=== PATIENT | female | born 1970 | race Caucasian/White ===

== ENCOUNTER 2016-10-07 21:09 | Inpatient (IN) | payer OTHER ==
[~2016-10-07] VITALS: Ht 165.1 cm; Wt 53.5 kg
--- NOTE | 2016-10-07 21:46 | NUR ---
RECEIVED 46 YO FEMALE HERE FOR DETOX FROM ALCOHOL. PT [facility] AND SAID THEY DONT DO DETOX. PT DRINKS ABOUT A HALF TO ONE PINT OF VODKA A DAY. LAST DRANK THIS AM BUT HAD A FEW SHOTS BEFORE COMING HERE. PT BEGINNING TO HAVE VISUAL DISTURBANCES. PT DENIES WITHDRAWL SEIZURES. PT REPORTS SHE NEVER HAS BEEN THROUGH DETOX BEFORE.
--- NOTE | 2016-10-07 21:48 | NUR ---
PT DENIES SUICIDAL THOUGHTS OR IDEADION. NO H.I.
--- NOTE | 2016-10-07 22:32 | ED PSYCHIATRIC COMPLAINT ---
History of Present Illness General Chief Complaint: ETOH/Drug Related Complaint Stated Complaint: REQUESTING DETOX FROM ETOH, -SI/HI Source: patient Exam Limitations: no limitations Vital Signs & Intake/Output Vital Signs & Intake/Output Vital Signs Date Time Temp Pulse Resp B/P B/P Pulse O2 O2 Flow FiO2 Mean Ox Delivery Rate 10/08 0340 97.2 92 18 126/91 06 0330 97.2 92 18 126/91 98 10/08 0130 97.7 104 18 144/90 10/08 0040 97.7 91 18 130/80 98 10/07 2147 98.8 106 18 147/90 97 Room Air ED Intake and Output 10/08 0000 10/07 1200 Intake Total Output Total Balance Patient 118 lb Weight Weight Estimated Measurement Method Allergies Coded Allergies: No Known Allergies (10/07/16) Triage Note: RECEIVED 46 YO FEMALE HERE FOR DETOX FROM ALCOHOL. [facility] SAID THEY DONT DO DETOX. PT DRINKS ABOUT A HALF TO ONE PINT OF VODKA A DAY. LAST DRANK THIS AM BUT HAD A FEW SHOTS BEFORE COMING HERE. PT BEGINNING TO HAVE VISUAL DISTURBANCES. PT DENIES WITHDRAWL SEIZURES. PT REPORTS SHE NEVER HAS BEEN THROUGH DETOX BEFORE. Triage Nurses Notes Reviewed? yes Onset: Abrupt Duration: week(s): (1) Timing: recent history Severity: moderate, severe Associated Symptoms: AGITATION, ANXIETY, VISUAL HALLUCINATIONS HPI: This is a very pleasant 46-year-old female with history of alcoholism. She states she's been drinking for the past 3 years. For the past one year she's been drinking 1 pint of vodka per day. When she wakes up in the morning she needs to drink as she gets up. She is unable to function throughout the day at work and then drinks the rest when she gets home. She states the last week or so her mood is been getting worse and she is feeling agitated. Throat work she cannot concentrate. She thinks that she needs to detox at this point. Her a few years ago for alcoholism and states that she is worried about leaving her children alone. This morning she went to the hospital he told her they didn't do detox. They gave her 0.5 mg of Ativan in the hospital and she took another dose at 7:45 PM. She states at home she was starting to see bugs on the wall as well as bugs on her daughter's face. No known history of alcohol withdrawal seizures. She states that she is never gone long enough to find out what happens. She has not missed a day of alcohol last year. She should drink excessive wheel from Memorial weekend which may have made things worse. She is not suicidal or hotel. She denies any illicit drug use. She denies report family history of alcoholism. (AMAN ELIZONDO MD) Past History Travel History Traveled to [place] past 21 day No Medical History Any Pertinent Medical History? see below for history Neurological: NONE EENT: NONE Cardiovascular: NONE Respiratory: NONE Gastrointestinal: NONE Hepatic: NONE Renal: NONE Musculoskeletal: NONE Psychiatric: NONE Endocrine: NONE Blood Disorders: NONE Cancer(s): NONE Surgical History Surgical History: non-contributory Psychosocial History What is your primary language Kazakh Tobacco Use: Quit >30 days ago ETOH Use: alcoholic Illicit Drug Use: denies illicit drug use Family History Comment: FAMILY H/O ALCOHOLISM Hx Contributory? Yes (AMAN ELIZONDO MD) Review of Systems Review of Systems Constitutional: Denies: chills, fever. EENTM: Reports: no symptoms. Respiratory: Denies: cough, short of breath. Cardiovascular: Denies: chest pain, palpitations. GI: Reports: no symptoms. Genitourinary: Reports: no symptoms. Musculoskeletal: Reports: no symptoms. Skin: Reports: no symptoms. Neurological/Psychological: Reports: anxiety, confusion. Denies: headache, numbness. Hematologic/Endocrine: Denies: bruising, bleeding, polyuria, polydipsia. Immunologic/Allergic: Denies: splenectomy. All Other Systems: Reviewed and Negative (AMAN ELIZONDO MD) Physical Exam Physical Exam General Appearance: alert, awake, anxious, mild distress, thin Head: atraumatic Eyes: Bilateral: PERRL, EOMI. Ears, Nose, Throat: normal pharynx, normal ENT inspection, hearing grossly normal Neck: normal inspection, supple Respiratory: normal breath sounds Cardiovascular: regular rate/rhythm Gastrointestinal: soft, non-tender Extremities: normal range of motion Neurological/Psychiatric: awake, alert, anxious, hospital chief executive officer II-XII nml as tested Appearance/Memory/Insight: appropriate appearance, appropriate insight, neat Behavoir/Eye Contact/Speech: cooperative, normal speech, good eye contact Thoughts/Hallucinations: visual hallucinations Skin: intact, normal color, warm/dry SAD PERSONS Done? patient not suicidal (CARO HAWKINS,AMAN) Progress Differential Diagnosis: ALCOHOL ABUSE, ALCOHOL WITHDRAWL Plan of Care: Orders Procedure Date/time Status Nothing by Mouth 10/08 B Active Pathway - chart 10/08 418 Active Saline Lock 10/08 416 Active Misc Message 10/08 416 Active ED Holding Orders 10/08 416 Active Admit to inpatient 10/08 416 Active Vital Signs 10/08 416 Active Code Status 10/08 416 Active EKG 10/08 2247 Active Add-on Test (ER Only) 10/07 2241 Active CIWA 10/07 2241 Active URINE DRUG SCREEN FOR ER ONLY 10/07 2157 Complete PARTIAL THROMBOPLASTIN TIME 10/07 2157 Complete PROTHROMBIN TIME 10/07 2157 Complete MAGNESIUM 10/07 2157 Complete LIPASE 10/07 2157 Complete ETHANOL 10/07 2157 Complete COMPREHENSIVE METABOLIC PANEL 10/07 2157 Complete CBC WITHOUT DIFFERENTIAL 10/07 2157 Complete Current Medications Sig/Zulay Start time Last Medication Dose Stop Time Status Admin Folic Acid 1 MG DAILY 10/08 1000 UNVr (Folic Acid) 10/10 1001 Multivitamins 1 TAB DAILY 10/08 1000 UNVr (Theragran Vitamins) Thiamine HCl 100 MG DAILY 10/08 1000 UNVr (Vitamin B1) 10/10 1001 Lorazepam 2 MG Q2P PRN 10/08 0430 UNVr (Ativan) Lorazepam 1 MG Q2P PRN 10/08 0430 UNVr (Ativan) Lorazepam 2 MG Q2P PRN 10/08 0430 UNVr (Ativan) Lorazepam 1 MG Q2P PRN 10/08 0430 UNVr (Ativan) Lorazepam 2 MG ONE ONE 10/08 414 UNVr (Ativan) 10/09 415 Laboratory Tests 10/08/16 0018: Anion Gap 14, Estimated GFR > 60, BUN/Creatinine Ratio 15.0, Glucose 84, Calcium 9.5, Magnesium 1.9, Total Bilirubin 1.9 H, AST 123 H, ALT 148 H, Alkaline Phosphatase 66, Total Protein 8.1, Albumin 4.8, Globulin 3.3, Albumin/Globulin Ratio 1.5, Lipase 134, PT 11.3, INR 1.08, APTT 25, CBC w Diff NO MAN DIFF REQ, RBC 4.47, MCV 95.9, MCH 33.1 H, RDW 11.9, MPV 7.1 L, Gran % 73.4, Lymphocytes % 18.6 L, Monocytes % 6.9, Eosinophils % 0.8, Basophils % 0.3, Absolute Granulocytes 6.2, Absolute Lymphocytes 1.6, Absolute Monocytes 0.6, Absolute Eosinophils 0.1, Absolute Basophils 0, PUBS MCHC 34.5, Serum Alcohol < 10.0 10/07/16 2300: Urine Opiates Screen < 100.00, Methadone Screen 56, Barbiturate Screen < 60, Ur Phencyclidine Scrn < 6.00, Amphetamines Screen < 100, U Benzodiazepines Scrn < 85, Urine Cocaine Screen < 50, Urine Cannabis Screen < 5.00 Initial ED EKG: NSR Hand-Off Endorsed To: WES HAWKINS,GREGORY Henry Endorsed Time: 2299 Pending: labs, other (CIWA/SOBRIETY) (AMAN ELIZONDO MD) Departure Departure Disposition: STILL A PATIENT Condition: Stable Clinical Impression Primary Impression: Alcohol withdrawal Referrals: UNKNOWN (PCP/Family) Departure Forms: Customer Survey General Discharge Information (AMAN ELIZONDO MD) Admission Note Spoke With: MILAN KAUR MD Documentation of Exam: Documentation of any treatments & extenuating circumstances including Concerns Regarding Discharge (functional status, medication knowledge or non-compliance, living conditions, etc.) that warrant an admission rather than observation: pt meets criteria for admission based on elevated ciwa scores (15). Of note, pt visually hallucinating, tachycardic, tremulous. Discussed with case management. Pt merits benzos iv/po detox protocol. (WES HAWKINS,GREGORY Henry)
[2016-10-08] VITALS (7 sets, daily range): BP systolic 120–144; BP diastolic 78–91
--- NOTE | 2016-10-08 00:05 | NUR ---
PT C/O NAUSEA. PT MEDICATED WITH ZOFRAN PER ORDER
--- NOTE | 2016-10-08 00:18 | NUR ---
BLOOD DRAWN AND SEN TO LAB. LAV,SST,BLUE
[2016-10-08 00:30] LABS: ABSOLUTE BASOPHIL COUNT 0 /CUMM (0.0-0.2); ABSOLUTE EOSINOPHIL COUNT 0.1 /CUMM (0.0-0.7); ABSOLUTE GRANULOCYTE CT 6.2 /CUMM (1.4-6.5); ABSOLUTE LYMPH COUNT 1.6 /CUMM (1.2-3.4); ABSOLUTE MONOCYTE COUNT 0.6 /CUMM (0.10-0.60); BASOPHIL % 0.3 % (0.0-2.0); EOSINOPHIL % 0.8 % (0-5); GRANULOCYTE % 73.4 % (42.2-75.2); HEMATOCRIT 42.9 % (37-47); MEAN CORPUSCULAR HGB 33.1 PG (27.0-31.0); MEAN CORPUSCULAR HGB CONC 34.5 G/DL (33.0-37.0); MEAN CORPUSCULAR VOLUME 95.9 FL (81.0-99.0); MEAN PLATELET VOLUME 7.1 FL (7.4-10.4); PLATELET COUNT 292 /CUMM (130-400); RBC DISTRIBUTION WIDTH 11.9 % (11.5-14.5); RED BLOOD CELL CT 4.47 /CUMM (4.20-5.40); WHITE BLOOD CELL COUNT 8.4 /CUMM (4.8-10.8)
[2016-10-08 00:35] LABS: PT 11.3 SEC (9.4-12.5); PTT 25 SEC (25-37)
--- NOTE | 2016-10-08 00:48 | NUR ---
PT REPORTS NAUSEA SUBSIDING AFTER BEING MEDICATED. PT DENIES PAIN AT THIS TIME
--- NOTE | 2016-10-08 01:58 | NUR ---
PT SCORING 10 IN CIWA. MD HARVEY AWARE
--- NOTE | 2016-10-08 04:14 | NUR ---
IV EST #20 IN RIGHT FOREARM
--- NOTE | 2016-10-08 04:24 | History & Physical ---
CLAUDIA HE 10/08/16 0422: General Information and HPI MD Statement: I have seen and personally examined RONNI TOWNSEND and documented this H&P. The patient is a 46 year old F who presented with a patient stated chief complaint of [ALCOHOL DETOX]. Source of Information: patient Exam Limitations: no limitations History of Present Illness: 46-year-old female with a past medical history of alcoholism presented to the ED for alcohol detox. According to the patient she's been drinking for the past 3 years. She's had a lot of stress in the family lately with her and parents passing away which triggered her to start drinking. She states that she drinks about a pint of vodka on a daily basis. Over the last week or so she feels like she's been out of control her drinking and so she wanted to come to the hospital for detox. Of note she went to [facility] earlier today and was told that they do not do detox. Later this evening she was sitting with her daughter saw acid spider on her nose and then started having visual hallucinations with people that there were spiders on the wall difficult. She therefore decided to come to the ER for further evaluation. Patient endorses chills, tremors, anxiety, palpitations denies any chest discomfort, headache, shortness of breath, fever, urinary complaints, abdominal pain, history of seizure disorder, has not undergone a detox before. She does endorse nausea stating that she 3 while right after having clear yesterday however denies any hematemesis. She states she did do binge drinking this past weekend. Of note she normally takes about 2 shots in the a.m. before going forward has another one at around lunch. She states that she was started on benzos by [facility] back in May for a month. Of note one of her step daughters is getting this weekend and she wants to be clean prior to attending the wedding. Allergies/Medications Allergies: Coded Allergies: No Known Allergies (10/07/16) Home Med list Alprazolam 0.5 MG TABLET 0.5 MG PO DAILY ANXIETY (Reported) Past History Travel History Traveled to [place] past 21 day No Medical History Neurological: NONE EENT: NONE Cardiovascular: NONE Respiratory: NONE Gastrointestinal: NONE Hepatic: NONE Renal: NONE Musculoskeletal: NONE Psychiatric: NONE Endocrine: NONE Blood Disorders: NONE Cancer(s): NONE Surgical History Surgical History: bunionectomies Past Family/Social History Family History Relations & Conditions if any MOTHER FH: pancreatic cancer FATHER FH: dementia FH: hyperlipidemia Psychosocial History Where do you live? Home Smoking Status: Former Smoker ETOH Use: alcoholic Illicit Drug Use: denies illicit drug use Functional Ability ADLs Independent: dressing, eating, toileting, bathing. Ambulation: independent IADLs Independent: shopping, housework, finances, food prep, telephone, transportation , medication admin. 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 EENTM: Denies: visual changes. Cardiovascular: Denies: chest pain, orthopena, palpitations, peripheral edema. Respiratory: Denies: cough, orthopnea, short of breath, sputum production, wheezing. GI: Reports: nausea, vomiting. Denies: abdominal pain, constipation, diarrhea, bloody stool, changes in stool. Genitourinary: Reports: no symptoms. Musculoskeletal: Reports: no symptoms. Neurological/Psychological: Reports: anxiety, tremors. Denies: headache, numbness, tonic-clonic seizures, unable to move lower ext, unable to move upper ext, weakness. Exam & Diagnostic Data Last 24 Hrs of Vital Signs/I&O Vital Signs Date Time Temp Pulse Resp B/P B/P Pulse O2 O2 Flow FiO2 Mean Ox Delivery Rate 10/08 0340 97.2 92 18 126/91 10/08 0330 97.2 92 18 126/91 98 10/08 0130 97.7 104 18 144/90 10/08 0040 97.7 91 18 130/80 98 10/07 2147 98.8 106 18 147/90 97 Room Air Intake & Output 10/08 0800 10/08 0000 10/07 1600 Intake Total Output Total Balance Patient 118 lb Weight Weight Estimated Measurement Method Physical Exam General Appearance Alert, Oriented X3, Cooperative, anxious Skin No Rashes, No Breakdown, No Significant Lesion Skin Temp/Moisture Exam: Warm/Dry Sepsis Skin Exam (color): Normal for Ethnicity HEENT Atraumatic, PERRLA, EOMI, dry mucous membranes; flushed Neck Supple, No JVD, No thryomegaly, +2 Carotid Pulse wo Bruit, No LAD Cardiovascular Regular Rate, Normal S1, Normal S2, No Murmurs Lungs Clear to Auscultation, Normal Air Movement Abdomen Normal Bowel Sounds, Soft, No Tenderness, No Hepatospenomegaly, No Masses Neurological Normal Speech, Strength at 5/5 X4 Ext, Normal Tone, Sensation Intact, Cranial Nerves 3-12 NL, Reflexes 2+, tremulous Extremities No Clubbing, No Cyanosis, No Edema, Normal Pulses, No Tenderness/ Swelling Vascular Normal Pulses, Pulses Symmetrical Last 24 Hrs of Labs/David: Laboratory Tests 10/08/16 0018: Anion Gap 14, Estimated GFR > 60, BUN/Creatinine Ratio 15.0, Glucose 84, Calcium 9.5, Magnesium 1.9, Total Bilirubin 1.9 H, AST 123 H, ALT 148 H, Alkaline Phosphatase 66, Total Protein 8.1, Albumin 4.8, Globulin 3.3, Albumin/Globulin Ratio 1.5, Lipase 134, PT 11.3, INR 1.08, APTT 25, CBC w Diff NO MAN DIFF REQ, RBC 4.47, MCV 95.9, MCH 33.1 H, RDW 11.9, MPV 7.1 L, Gran % 73.4, Lymphocytes % 18.6 L, Monocytes % 6.9, Eosinophils % 0.8, Basophils % 0.3, Absolute Granulocytes 6.2, Absolute Lymphocytes 1.6, Absolute Monocytes 0.6, Absolute Eosinophils 0.1, Absolute Basophils 0, PUBS MCHC 34.5, Serum Alcohol < 10.0 10/07/16 2300: Urine Opiates Screen < 100.00, Methadone Screen 56, Barbiturate Screen < 60, Ur Phencyclidine Scrn < 6.00, Amphetamines Screen < 100, U Benzodiazepines Scrn < 85, Urine Cocaine Screen < 50, Urine Cannabis Screen < 5.00 Diagnostic Data EKG Results ST; HR: 96, poor R wave progression, P wave inversion in V1 -V2; QTC: 469 Assessment/Plan Assessment: 46-year-old female with a past medical history of alcoholism, presents to the ED for detoxification from alcohol. Vitals at the time of admission blood pressure 126/91, respiratory rate 18, pulse 92, afebrile saturating 98% on room air. Labs pertinent normal white blood cell count of 8400, and H&H of 14.8/42.9, MCV of 95.9 with a platelet count of 292,000. Serum chemistries pertinent for hyponatremia with a sodium of 130s 4, potassium of 4.5, normal bicarbonate of 24 , anion gap of 14, BUN 9 with a creatinine of 0.6. LFTs revealed transaminitis with AST/ALT 123/148, alkaline phosphatase of 66, total bili elevated to 1.9. Amylase was negative at 134 and serum magnesium was within normal limits at 1.9. Coags revealed an INR of 1.08. U tox negative for cannabis, opiates, methadone. Serum alcohol was less than 10. EKG revealed: ST; HR: 96, poor R wave progression, P wave inversion in V1 -V2; QTC: 469 Her CIWA scores were ranging in the 15 in the ER. She received 4 mg of Zofran 1 and lorazepam 2 mg IV 1. Assessment and plan Admit patient to [facility] for alcohol detox #Alcohol detox Start Ativan 2 mg every 6 by mouth scheduled Start Ativan per CIWA protocol Banana bag 1 for now with transition to oral thiamine, folic acid, multivitamin in a.m. Place on seizure precautions Social work and psych consult in a.m. #Transaminitis Most likely secondary to alcoholism Follow-up repeat LFTs in a.m. -Diet Regular DVT prophylaxis Heparin 5000 IU TID subcutaneous CODE STATUS Full Code As Ranked By This Provider Problem List: 1. Alcohol withdrawal Core Measures/Miscellaneous Acute Coronary Syndrome ACS Diagnosis: No Cerebrovascular Accident CVA/TIA Diagnosis: No Congestive Heart Failure CHF Diagnosis: No Venous Thromboembolism VTE Risk Factors: Age > 40 No [facility] VTE prophylaxis d/t: No contraindications No VTE Pharm Prophylaxis d/t: No contraindications VTE Diagnosis: No VTE Type: NONE VTE Confirmed by (Test): NONE Severe Sepsis Severe Sepsis Present: No Septic Shock Septic Shock Present: No Miscellaneous Documentation Attending Case Discussed With: Dr. Huitron Primary Care Physician: UNKNOWN Patient sees these Specialists None Level of Patient Care: General Medicine Consults Needed: Consulting Specialty: Sexual Assault Counsellor Review Statement Resident Statement: ADMITTED BY MILAN TRIPATHI 10/08/16 0548: Attending MD Review Statement Attending Statement Attending MD Statement: examined this patient, discuss w/resident/PA/HOME HEALTH CARE CASE MANAGER, agreed w/resident/PA/HOME HEALTH CARE CASE MANAGER, reviewed EMR data (avail), reviewed images, amended to note Attending Assessment/Plan: CC: alcohol Detox PMH: none Patient came for alcohol detox. She has been drinking for the past 3 years, and drinking 1 pint of vodka per day for last year. She drinks 2 drinks in AM and the one drink lunch time then after coming home. Her mood is been getting worse and she is feeling agitated. Her a few years ago for alcoholism and she is worried about her children. This morning she went to other hospital, was told that they didn't do detox. They gave her 0.5 mg of Ativan in the hospital. She started to see bugs on the wall as well as bugs on her daughter's face so she came in ER . No known history of alcohol related seizures. She is not suicidal or homicidal. She denies any illicit drug use. She had one episode of vomiting, feels her abdomen is bloated otherwise no complaints. Vitals: Afebrile, pulse 106, RR 18, blood pressure 147/90, saturating well on room air. On exam: A O 3, cooperative, anxious, tremulous, neck supple, JVD normal, no lymphadenopathy, mucosa dry, no focal neurological deficit, no dependent edema, no obvious skin rashes or inflammation CVS: S1-S2, RRR. RS: Clear to auscultate bilaterally. Abdomen: Soft, NT, ND, bowel sounds present. Labs: CBC, BMP unremarkable. AST 123, ALT 148, total bilirubin 1.9, alkaline phosphatase 66, INR 1.08 U tox unremarkable, alcohol less than 10 A and P 46-year-old female extensive alcohol history comes for alcohol detox, currently anxious and mild tremors. Never tried detox before no history of seizures no history of homicidal or suicidal ideation. Patient's CIWA at presentation was 9 and went up to 15. Patient received total 2 mg of Ativan in ER. + Alcohol withdrawal - admit to general medicine floor - Scheduled Ativan 2 mg by mouth 6 hourly and when necessary Ativan according to CIWA score - Replace electrolytes - Replete vitamins, banana bag - Psychiatric consult in a.m. - Repeat CBC, BMP, LFT, phosphate in morning. - Adequate pain control - DVT prophylaxis with heparin or Lovenox
--- NOTE | 2016-10-08 04:39 | NUR ---
PT SCORING 15 CIWA. PT MEDICATED WITH 2MG ATIVAN PER ORDER
--- NOTE | 2016-10-08 05:21 | NUR ---
PT'S ASSIGNMENT 176
[2016-10-08] MEDS ORDERED: ALPRAZOLAM0.5 M4 PO (05:32)
--- NOTE | 2016-10-08 05:34 | NUR ---
PT A/O X4. RESP UNLABORED. SKIN WARM AND DRY. PT REPORTS FEELING BETTER AFTER ATIVAN.
--- NOTE | 2016-10-08 05:49 | Admission Certification ---
Admission Certification Certification Statement - As attending physician, I certify that at the time of - admission, based on clinical presentation, severity of - symptoms, need for further diagnostic testing and - therapeutic interventions, and risk of adverse outcomes - without in-hospital treatment, in my clinical assessment, - this patient requires an acute hospital stay for a minimum - of two nights or longer. I have also considered psychsocial - factors such as support system, advanced age, financial - issues, cognitive issues, and failed out-patient treatments, - past re-admission history, safety of patient, and lack of - compliance as applicable. Specific rationale supporting this admission is: Alcohol withdrawal
[2016-10-09 00:30] VITALS: BP 118/84
[2016-10-09 08:16] VITALS: BP 108/70
--- NOTE | 2016-10-09 10:20 | PN- Housestaff ---
ZABRINA MCMULLEN 10/09/16 1014: Subjective Follow-up For: Alcohol detox Subjective: Patient seen and examined. Very drowsy this morning. Arousable, unable to engage in conversation. States that medication is making her drowsy. Reports no anxiety or jitteriness. No chest pain, palpitations or hallucinations. No suicidal or homicidal ideations. Review of Systems Constitutional: Reports: see HPI. Objective Last 24 Hrs of Vital Signs/I&O Vital Signs Date Time Temp Pulse Resp B/P B/P Pulse O2 O2 Flow FiO2 Mean Ox Delivery Rate 10/09 0854 74 18 10/09 0816 98.5 78 16 108/70 97 Room Air 10/09 0030 97.7 70 20 118/84 97 Room Air 10/09 0000 Room Air 10/08 1530 98.8 88 16 120/78 98 Room Air 10/08 1214 98.2 87 20 130/90 Intake & Output 10/09 1600 10/09 0800 10/09 0000 Intake Total 200 420 Output Total Balance 200 420 Intake, IV 20 Intake, Oral 200 400 Number 0 Bowel Movements Physical Exam General Appearance: Alert, Oriented X3, Cooperative Cardiovascular: Regular Rate, Normal S1, Normal S2 Lungs: Clear to Auscultation, Normal Air Movement Abdomen: Normal Bowel Sounds, Soft Extremities: No Clubbing, No Cyanosis, No Edema Current Medications: Current Medications Sig/Zulay Start time Last Medication Dose Route Stop Time Status Admin Cyanocobalamin/ 1 BAG ONCE ONE 10/08 0445 DC 10/08 Thiamine/Pyridoxine IV 10/08 1244 0511 Dextrose/Water 1,000 ML Folic Acid 1 MG DAILY 10/09 1000 AC 10/09 PO 10/11 1001 0950 Folic Acid 1 MG DAILY 10/08 1000 DC PO 10/10 1001 Heparin Sodium 5,000 UNIT Q8 10/08 0600 AC 10/09 (Porcine) SC 0549 Ibuprofen 600 MG Q6P PRN 10/08 0445 AC PO Lorazepam 2 MG Q8 10/09 1400 DC PO Lorazepam 1.5 MG Q8 10/09 1400 AC PO Lorazepam 2 MG Q6 10/08 1200 DC 10/09 PO 0549 Lorazepam 2 MG Q2P PRN 10/08 0430 AC IV Lorazepam 1 MG Q2P PRN 10/08 0430 AC 10/08 IV 2013 Morphine Sulfate 2 MG Q8P PRN 10/08 0530 AC IV Multivitamins 1 TAB DAILY 10/09 1000 AC 10/09 PO 0949 Multivitamins 1 TAB DAILY 10/08 1000 DC PO Thiamine HCl 100 MG DAILY 10/09 1000 AC / PO 10/11 1001 0949 Thiamine HCl 100 MG DAILY 10/08 1000 DC PO 10/10 1001 Last 24 Hrs of Lab/David Results Last 24 Hrs of Labs/Mics: Laboratory Tests 10/09/16 0630: Anion Gap 9, Estimated GFR > 60, BUN/Creatinine Ratio 21.4, Phosphorus 3.3, Magnesium 2.0, Total Bilirubin 2.0 H, Direct Bilirubin 0.4, AST 148 H, ALT 147 H, Alkaline Phosphatase 58, Total Protein 7.2, Albumin 4.1 Assessment/Plan Assessment: 46-year-old woman with multiple stressors at home, presented to [facility] ED on 10/08/2016 requesting alcohol detox. 1. Alcohol detox: Decrease Ativan to 1.5 mg every 8. Continue when necessary Ativan per CIWA, CIWA scores less than 9 overnight, requiring only 2 mg of IV Ativan when necessary over last several hours. Continue MVI, thiamine and folic acid. Await psychiatry consultation and social consult. Possible discharge tomorrow. Outpatient IOP referral. Full code. Pharmacological DVT prophylaxis. Regular diet. Problem List: 1. Alcohol withdrawal Pain Ratin Pain Location: None Pain Goal: Remain pain free Pain Plan: PRN Tomorrow's Labs & Rationales: Not needed Consulting Request: Consulting Specialty: Psychiatry ROOSEVELT BOWSER MD 10/09/16 1840: Attending MD Review Statement Attending Statement Attending MD Statement: examined this patient, discuss w/resident/PA/ASBESTOS SURVEYOR, agreed w/resident/PA/ASBESTOS SURVEYOR, reviewed EMR data (avail) Attending Assessment/Plan: 46F PMH EtOH abuse admitted for alcohol withdrawal with visual hallucinations and initial CIWA of 15. Patient is doing very well on Ativan taper, coherent and calm today without signs of withdrawal, CIWA scores well controlled. Will continue Ativan taper, anticipated discharge this weekend if continues to improve.
[2016-10-09] MEDS ORDERED: ALPRAZOLAM XR0.5 M1 PO (11:04)
--- NOTE | 2016-10-09 11:56 | NUR ---
Pt is a 46 y.o. w /W/F who is referred to for by MD Tomy For ETOH detox realted issues. Pt went to [facility] for etox and was told they do not do it. Pt with the help of her 17 y.o. dtr was given a med to help with ( not clear) withdrawal sx. Pt reports she started seeing spiders on her dtr's face and felt it was going to be to much for pt and her family to manage. Pt called her friends ( Kely and Regi) when going to [facility] and had her dtr bering her to [facility] for inpt Detox. Pt has never had tx for ETOH but has brought family member to tx . Pt reports at age 20 she decied not rene use ETOH. Afer pt's mother got sick pt in 2013 ( 12/25/14 and had been an ETOH with hx of detox rehab and AA) she started and after a year she began drinking pint of vodka daily with occasional beer. 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 Pt's last drink was moring when she needed a drink in the [facility] and then [facility] she needed a drink to stop shaking and to cope withthe hospital. Pt reports she has tried to cut back but starts drinking when she can not tolerate the withdrawal sx . Pt reports he brother age 28 of a fall while intoxicated. he had a ETOH problem and had had treatment. Pt's also of ETOH related problems while she was seprated from him. He had had treatment. Shirley educated pt on IOP and PHP level of care at local resources including IOP in [facility]. Pt has 4 girls. They lives with her. She also has a Step dtr who is a pediatrian and is gettng tomorrow in [place]. Pt has done much of the plan magdalena for the wedding. Her daughter are in the wedding. Pt is not sure she needs to go to the weddding. She feels other can care for her children who are teens. Other stressors are fiancial in cluding her dtr graduating highschool and [employer] and obtining more debt. This dtr SS income will run out next month. Pt reports she will consider IOP but is also considering AA meetings and 1:1 therapy with her old therapist..Pt reports she called her therapist and can get an appointment fornext week. Pt reports she doesnot have a mental health problem beyond ETOH nd when she does not drink she get anxious. she reports she had the therapist when she was seperated and then when spouse . Pt has in law support of [employer]. as well as a college friend Purnima. Pt reports she has been eating andsleeping and going to work. She denies sxof depression. Maybe some grief still after loss of mother. Pt makes eye contact and is tearful without meeting. She has some difficulty concentrating. She deniedSI/HI/AH/VH. she may have been having VH and did not disclose. Pt spoke of leaving tonight or tomorrow but in then manner of being medial done with detox. Shirley educated pt that it was sdtil unclaer whenshe would beleaving and pt was ok with being inpt throught tonight and tomorrow if need be. Sounded like pt was thinking we might given her ativan or another med like [facility]. Pt would most likely be alone if discharged due to family wedding plans unless a friend could be with her. shirley toprovide written info on [facility] and other local IOPs. shirley to availbale upon request . drinking problem
[2016-10-09] MEDS ORDERED: LORAZEPAM0.5 M1 PO (14:04)
--- NOTE | 2016-10-09 14:04 | Incdntl Nt Psy ---
Incidental Note Notation: "Etoh Detox" no psychiatric complaints identified Ordered by Dr. Niurka Huitron attending Subjective Review of Systems Constitutional: Reports: see HPI. Assessment/Plan Assessment: Identifying info: 46-year-old female admitted for EtOH detox. HPI: Please see HPI and social work note for alcohol use history. Subjective Patient without complaint beyond feeling "jumpy," when not drinking. She denies any previous psychiatric illness or treatment. She would be interested in receiving information on medications for alcohol cravings to start on an outpatient basis. She would like to return to her previous counselor. Objective Mental Status Exam Presentation/Appearance: Cooperative with evaluation. Hospital garb. Calm. Orientation: Grossly oriented Sensorium: Awake and alert Eye contact: Appropriate Affect: Somewhat blunted but congruent with stated mood Mood: Euthymic Depression: Denies Anxiety: Denies Thought Content: - Denies SI/HI, AH/VH, PI. States and also believes they will not kill themselves. - Denies Hopeless/Helpless Thoughts Thought Process: Linear Associations: Appropriate Speech: Normal tone and rate Judgment: Fair Insight: Fair Cognition: Memory: Grossly intact Attention/Concentration: Grossly intact Assessment Patient is not a risk for harm to self or others and is not gravely disabled. She would benefit from continued treatment for alcohol use disorder. Plan: 1. Will follow social work recommendations for disposition planning. 2. Patient provided written information on medications for alcohol cravings. Thank you for including psychiatry in this case we are signing off. A total of 30 minutes was spent with the patient with more than 50% of the time spent in counseling and/or coordination of care.
[2016-10-09] MEDS ORDERED: FOLIC ACID1 M1 PO (14:06)
[2016-10-09] MEDS ORDERED: ONE DAILY MULT1 EAC2 PO (14:06)
[2016-10-09] MEDS ORDERED: VITAMIN B-1100 MG PO (14:06)
--- NOTE | 2016-10-09 14:15 | Patient Discharge Instructions ---
Discharge Instructions General Discharge Information You were seen/treated for: EtOH detox Watch for these problems: Racy heart High BP Worsening anxiety Hallucinations Suicidal or homicidal ideations Special Instructions: Please follow up with Jason [facility]UM[facility] as an outpatient. Diet Continue normal diet: Yes Activity Full Activity/No Limits: No Acute Coronary Syndrome Inclusion Criteria At DC or during hospital stay patient has or had the following: ACS DIAGNOSIS No Discharge Core Measures Meds if any: Prescribed or Continued at Discharge Meds if any: NOT Prescribed or Continued at Discharge Congestive Heart Failure Inclusion Criteria At DC or during hospital stay patient has or had the following: CHF DIAGNOSIS No Discharge Core Measures Meds if any: Prescribed or Continued at Discharge Meds if any: NOT Prescribed or Continued at Discharge Cerebrovascular accident Inclusion Criteria At DC or during hospital stay patient has or had the following: CVA/TIA Diagnosis No Discharge Core Measures Meds if any: Prescribed or Continued at Discharge Meds if any: NOT Prescribed or Continued at Discharge Venous thromboembolism Inclusion Criteria VTE Diagnosis No VTE Type NONE VTE Confirmed by (Test) NONE Discharge Core Measures - Per Current guidelines, there needs to be overlap - treatment for the first 5 days of Warfarin therapy. - If discharged on Warfarin prior to 5 days of - overlap therapy, the patient will need to be - assessed for post discharge needs including - *Post discharge parental anticoagulation - *Warfarin and/or parental anticoagulation education - *Follow up date to check INR post discharge At least 5 days overlap therapy as Inpatient No Meds if any: Prescribed or Continued at Discharge Note: Overlap Therapy is Warfarin and Anticoagulant Meds if any: NOT Prescribed or Continued at Discharge
[2016-10-09 17:25] VITALS: BP 119/78
[2016-10-09 22:56] VITALS: BP 122/80
--- NOTE | 2016-10-10 08:49 | PN- Housestaff ---
See Addendum JESUS HAWKINS,JONY 10/10/16 0848: Subjective Follow-up For: Alcohol detox Subjective: Patient seen and examined this morning. No events reported overnight. No acute complaints. Reports significant improvement in her alcohol w/d sxs with no tremors, diaphoresis, headache, hallucinations. Currently denies any fever, chills, chest discomfort, dyspnea, abdominal pain, headache, nausea, vomiting. Review of Systems Constitutional: Reports: see HPI. Objective Last 24 Hrs of Vital Signs/I&O Vital Signs Date Time Temp Pulse Resp B/P B/P Pulse O2 O2 Flow FiO2 Mean Ox Delivery Rate 10/10 0903 98.6 83 18 110/72 97 Room Air / 2256 98.6 85 16 122/80 97 Room Air 10/09 1948 70 10/09 1725 98.7 80 15 119/78 96 Room Air / 1705 74 / 1400 70 Intake & Output 10/10 1600 10/10 0800 10/10 0000 Intake Total 200 Output Total Balance 200 Intake, Oral 200 Physical Exam General Appearance: Alert, Oriented X3, Cooperative, No Acute Distress Other Physical Findings: Cardiovascular: Regular Rate, Normal S1, Normal S2 Lungs: Clear to Auscultation, Normal Air Movement Abdomen: Normal Bowel Sounds, Soft Extremities: No Clubbing, No Cyanosis, No Edema Current Medications: Current Medications Sig/Zulay Start time Last Medication Dose Route Stop Time Status Admin Folic Acid 1 MG DAILY 10/09 1000 AC 10/10 PO /04 1001 0932 Heparin Sodium 5,000 UNIT Q8 10/08 0600 AC 10/10 (Porcine) SC 0617 Ibuprofen 600 MG Q6P PRN 10/08 0445 PO Lorazepam 1.5 MG Q8 10/09 1400 AC 10/10 PO 0600 Lorazepam 2 MG Q2P PRN 10/08 0430 IV Lorazepam 1 MG Q2P PRN 10/08 0430 AC 10/08 IV 2013 Morphine Sulfate 2 MG Q8P PRN 10/08 0530 IV Multivitamins 1 TAB DAILY 10/09 1000 AC 10/10 PO 0932 Ondansetron HCl 4 MG ONCE ONE 10/10 0245 DC 10/10 PO 10/10 0246 0626 Ondansetron HCl 4 MG ONCE ONE 10/09 1400 DC 10/09 PO 10/09 1401 1421 Patient Medication 1 ED .STK-MED ONE 10/09 1423 [facility] ED 10/09 1424 Thiamine HCl 100 MG DAILY 10/09 1000 AC 10/10 PO 10/11 1001 0932 Last 24 Hrs of Lab/David Results Last 24 Hrs of Labs/Mics: Laboratory Tests 10/10/16 1320: Total Bilirubin Pending, Direct Bilirubin Pending, AST Pending, ALT Pending, Alkaline Phosphatase Pending, Total Protein Pending, Albumin Pending Assessment/Plan Assessment: 46-year-old woman with multiple stressors at home, presented to [facility] ED on 10/08/2016 requesting alcohol detox. 1. Alcohol detox: Taper Ativan to 1.5 mg Q12H. Continue when necessary Ativan per CIWA, CIWA scores 0-2 overnight. Continue MVI, thiamine and folic acid. Await psychiatry consultation and social consult. Possible discharge tomorrow. Outpatient IOP referral. 2. Transaminiits * Recheck LFTs today * RUQ US if trending up Full code. Pharmacological DVT prophylaxis. Regular diet. Problem List: 1. Alcohol withdrawal 2. Transaminitis Pain Ratin Pain Location: 0 Pain Goal: Remain pain free Pain Plan: Mild path Tomorrow's Labs & Rationales: LFTs Consulting Request: Consulting Specialty: Psychiatry MICHAEL HAWKINS,MELA 10/10/16 1220: Attending MD Review Statement Attending Statement Attending MD Statement: examined this patient, discuss w/resident/PA/SEISMOLOGY TECHNICAL OFFICER, agreed w/resident/PA/SEISMOLOGY TECHNICAL OFFICER, discussed with family, reviewed EMR data (avail), discussed with nursing, discussed with case mgmt, reviewed images, amended to note Attending Assessment/Plan: Patient sitting comfortably in bed. Does not offer any complaints currently. Was nauseous earlier. Is still on Ativan taper and has not been seen by social service technician. She ate psychiatry input. Her C5 is ranging from 0-2, she scored on nausea and tremors. Of note her LFT has trended up yesterday as compared to her admission LFT. Patient is still on Ativan taper by mouth has not required IV Ativan for >24 Hours. We will continue with Ativan taper today, repeat LFT today and if still elevated proceed with a right upper quadrant ultrasound.
[2016-10-10 09:03] VITALS: BP 110/72
[2016-10-10] MEDS ORDERED: ROZEREM8 M1 PO (11:59)
[2016-10-10 15:30] VITALS: BP 116/78
[2016-10-11 00:14] VITALS: BP 112/78
[2016-10-11 08:23] VITALS: BP 112/78
[2016-10-11] MEDS ORDERED: LORAZEPAM0.5 M1 PO ×2 (08:38→08:48)
[2016-10-11] MEDS ORDERED: ROZEREM8 M1 PO (08:49)
--- NOTE | 2016-10-11 10:43 | PN- Housestaff ---
SRI HAWKINS,NIRANJAN 10/11/16 1042: Subjective Follow-up For: ETOH WITHDRAWAL Subjective: Seen and examined bedside. Does not endorse any new acute complaints including hallucination, increased anxiety, nightmares, tremors, palpitation, chest pain, fever, chills, nausea, vomiting, abdominal pain or dysuria. No acute overnight event reported by nursing staff. Patient is eager for discharge Review of Systems Constitutional: Reports: no symptoms. Objective Last 24 Hrs of Vital Signs/I&O Vital Signs Date Time Temp Pulse Resp B/P B/P Pulse O2 O2 Flow FiO2 Mean Ox Delivery Rate 10/11 0823 98.5 76 18 112/78 97 Room Air 10/11 0014 98.5 85 16 112/78 97 Room Air Intake & Output 10/11 1600 10/11 0800 10/11 0000 Intake Total 120 Output Total Balance 120 Intake, Oral 120 Physical Exam General Appearance: Alert, Oriented X3, Cooperative Other Physical Findings: Cardiovascular: Regular Rate, Normal S1, Normal S2 Lungs: Clear to Auscultation, Normal Air Movement Abdomen: Normal Bowel Sounds, Soft Extremities: No Clubbing, No Cyanosis, No Edema Current Medications: Current Medications: Current Medications Sig/Zulay Start time Last Medication Dose Route Stop Time Status Admin Docusate Sodium 100 MG DAILY NEEDED PRN 10/11 0030 DCD 10/11 PO 0621 Folic Acid 1 MG DAILY 10/09 1000 DCD 10/11 PO 10/11 1001 0910 Heparin Sodium 5,000 UNIT Q8 10/08 0600 DCD 10/11 (Porcine) SC 0622 Ibuprofen 600 MG Q6P PRN 10/08 0445 DCD PO Lorazepam 0.5 MG BID 10/11 1000 DCD / PO 10/18 0959 0911 Lorazepam 1 MG BID 10/10 2200 DC 10/10 PO 10/11 0000 2030 Lorazepam 2 MG Q2P PRN 10/08 0430 DCD IV Lorazepam 1 MG Q2P PRN / 0430 DCD 10/08 IV 2013 Morphine Sulfate 2 MG Q8P PRN / 0530 DCD IV Multivitamins 1 TAB DAILY 10/09 1000 DCD 10/11 PO 0910 Ondansetron HCl 4 MG ONCE ONE 10/10 2345 DC 10/10 IV 10/10 2346 2357 Polyethylene Glycol 17 GM DAILY NEEDED PRN 10/11 0030 DCD PO Ramelteon 8 MG AT BEDTIME NEED.. 10/10 1345 DCD PO Thiamine HCl 100 MG DAILY 10/09 1000 DCD 10/11 PO 10/11 1001 0910 Last 24 Hrs of Lab/David Results Last 24 Hrs of Labs/Mics: Laboratory Tests 10/11/16 0628: Total Bilirubin 0.8, Direct Bilirubin 0.2, AST 111 H, ALT 143 H, Alkaline Phosphatase 55, Total Protein 7.0, Albumin 4.0 Assessment/Plan Assessment: 46-year-old woman with multiple stressors at home, presented to [facility] ED on 10/08/2016 requesting alcohol detox. 1. Alcohol detox: CIWA score 0. Ativan continued taper for 2 days than restart regular home maintanence dose. Stable fot discharge with no acute complaints. Continue out patient MVI, thiamine and folic acid. 2. Transaminiits * Downtrending Full code. Pharmacological DVT prophylaxis. Regular diet. Problem List: 1. Alcohol withdrawal 2. Transaminitis Pain Ratin Pain Location: NONE Pain Goal: Remain pain free Pain Plan: NONE Tomorrow's Labs & Rationales: NONE-DISCHARGE Consulting Request: Consulting Specialty: Psychiatry MICHAEL HAWKINS,[facility] 10/11/16 1113: Attending MD Review Statement Attending Statement Attending MD Statement: examined this patient, discuss w/resident/PA/ECONOMIC DEVELOPMENT SPECIALIST, agreed w/resident/PA/ECONOMIC DEVELOPMENT SPECIALIST, discussed with family, reviewed EMR data (avail), discussed with nursing, discussed with case mgmt, reviewed images, amended to note Attending Assessment/Plan: Patient sitting comfortably in bed. Says feels much better today. Does not have any nausea, vomiting, abdominal pain or any other symptoms. CIWA 0-2 in last 24 hours. She is left with 2 more doses of Ativan . Her transaminases have trended down . Was extensively counseled regarding alcohol cessation . She 'll be discharged home today to complete the taper at home . Patient has been provided with IOP referrals by psychiatry, and is totally agreeable to call them and make an appointment. Was also explained to follow up with her primary care physician as an outpatient follow-up on her liver function test.
--- NOTE | 2016-10-11 18:58 | Discharge Summary ---
See Addendum Visit Information Visit Dates Admission Date: 10/08/16 Discharge Date: 10/11/16 Hospital Course Course Attending Physician: MILAN KAUR MD Primary Care Physician: UNKNOWN Consulting Request: Consulting Specialty: Psychiatry Hospital Course: 56-year-old woman with no significant past medical history came to [facility] ED requesting for alcohol detox. Patient at the time stated that she had been drinking for last 3 years, and approximately 1 pint of vodka per day for at least last 1 year. Prior to admission, patient stated that she had started seeing bugs on the wall as well as bugs on her daughter's face and that prompted her visit to the ER. She denied any alcohol related seizures at the time and she denied any suicidal or homicidal ideations. The patient was afebrile, pulse rate of 106 and blood pressures within normal limits. Physical exam at the time was benign. Labs showed unremarkable results for CBC and BEP, with slight elevations in liver enzymes and a slightly increased bilirubin. The patient was admitted to general medicine floors for alcohol detox. 1. The patient was started on Ativan [id number] and on an as-needed basis. Over the course of her stay, CIWA scores normalized and the patient showed no signs of alcohol withdrawal. On the day of discharge, patient felt much better and was excessively consult regarding alcohol cessation. The patient was discharged with a quick Ativan taper and was provided with referrals to follow-up with psychiatry, IOP. She was also encouraged to follow-up with her primary care physician. MVI, folate and thiamine supplements were added to her medication list. Full code. DVT prophylaxis-pharmacological. Regular diet. Allergies: Coded Allergies: No Known Allergies (10/07/16) Disposition Summary Disposition Principal Diagnosis: Alcohol detox Additional Diagnosis: Transaminitis Discharge Disposition: home or self care Discharge Instructions General Discharge Information Code Status: Full Code Patient's Diet: Regular Patient's Activity: As tolerated Follow-Up Instructions/Appts: Please follow-up with IOP and psychiatry as an outpatient. Please follow-up with primary care physician as outpatient. Medications at Discharge Discharge Medications: Continue taking these medications: Alprazolam (Alprazolam) 0.5 MG TABLET 0.5 Milligram ORAL DAILY Qty = 30 Comments: NOT GIVEN Ramelteon (Rozerem) 8 MG TABLET 8 Milligram ORAL AT BEDTIME as needed for INSOMNIA Qty = 30 Instructions: . Comments: NOT GIVEN This prescription has been renewed Start taking the following new medications: Lorazepam (Lorazepam) 0.5 MG TABLET 0 ORAL See Instructions Qty = 7 No Refills Instructions: TAKE 1 TAB in the evening on 10/11/16. THEN TAKE 1 TAB ON 10/12/16. DONOT TAKE THIS MEDICATION ALONG WITH YOUR HOME MED XANAX(ALPRAZOLAM). START ALPRAZOLAM AFTER YOU FINISH THIS TAPER. Comments: GIVEN 10/11/16 @ 0910 Folic Acid (Folic Acid) 1 MG TABLET 1 Milligram ORAL DAILY Days = 30 No Refills Comments: GIVEN 10/11/16 @ 0910 Thiamine HCl (Vitamin B-1) 100 MG TABLET 100 Milligram ORAL DAILY Days = 30 No Refills Comments: GIVEN 10/11/16 @ 0910 Multivitamin (One Daily Multivitamin) 1 EACH TABLET 1 Tablet ORAL DAILY Days = 30 No Refills Comments: GIVEN 10/11/16 @ 0910 Ramelteon (Rozerem) 8 MG TABLET 8 Milligram ORAL AT BEDTIME as needed for INSOMNIA Days = 30 No Refills Copies To: ROOSEVELT BOWSER MD Attending MD Review Statement Documenting Attending: ROOSEVELT BOWSER MD
== END 2016-10-11 09:40 | DRG 897 ==
LOC: DELPENDDIS → ERH 21:09 → 1NO 10-08 04:17 → ERHI 10-08 04:17 → 1NO 10-08 04:17 → ENRESERV 10-08 05:26 → 1NO 10-08 06:17 → ENPENDDIS 10-10 12:00 → 1NO 10-11 09:40
PROVIDERS: Physician Assistant Medical; ADMIT Internal Medicine
DX: F10.231 Alcohol dependence with withdrawal delirium (principal); R74.0 Nonspecific elevation of levels of transaminase and lactic acid dehydrogenase [LDH]; Z87.891 Personal history of nicotine dependence
CPT/HCPCS: 1NP; 36415; 80307; 82436; 93005; 93010; G0480; J1644; J2405; J3101; J3490; J7060